=== PATIENT | male | born 1995 | race African-American/Black ===

== ENCOUNTER 2023-11-24 08:37 | Emergency (ER) | payer OTHER ==
[2023-11-24] MEDS ORDERED: LIDOCAINE 1% 20 ML MDV ONE (08:45)
[2023-11-24] MEDS ORDERED: BUPIVACAINE 0.5% PF 10 ML VIAL ONE (08:46)
--- NOTE | 2023-11-24 09:40 | RAD REPORT ---
EXAM DESCRIPTION: RAD - Finger-Thumb Right - 11/24/2023 9:20 am CLINICAL HISTORY: PAIN COMPARISON: No comparisons FINDINGS/IMPRESSION: Transversely oriented fracture at the third distal phalanx at the base of the t uft with approximately 4 millimeters of distraction of the fracture fragments. Bandage material is pr esent. There may be some debris at the wound. This appears to be an open fracture.
--- NOTE | 2023-11-24 10:00 | ER ---
Nurse's Notes [facility] Name: Burak Link Age: 28 yrs Sex: Male : 1995 Arrival Date: 11/24/2023 Time: 08:37 Bed 20 Private MD: Diagnosis: partial amputation / open fracture of distal phalanx of third finger, right hand Presentation: 11/23 08:39 Chief complaint: Inmate from [facility], states that the middle finger of the R hand was ph slammed in cell door this morning, obvious deformity noted. Coronavirus screen: Vaccine status: Patient reports receiving the 2nd dose of the covid vaccine. Ebola Screen: No symptoms or risks identified at this time. Initial Sepsis Screen: Does the patient meet any 2 criteria? No. Patient's initial sepsis screen is negative. Does the patient have a suspected source of infection? No. Patient's initial sepsis screen is negative. Risk Assessment: Do you want to hurt yourself or someone else? Patient reports no desire to harm self or others. Onset of symptoms was November 24, 2023. 08:39 Method Of Arrival: Law Enforcement: [place] [employer] 08:39 Acuity: JANNETTE 4 ph Triage Assessment: 08:50 General: Appears in no apparent distress. Behavior is calm, cooperative. Pain: ph Complains of pain in dorsal aspect of distal phalanx of right middle finger and right middle fingernail. Neuro: Level of Consciousness is awake, alert, obeys commands, Oriented to person, place, time, situation. Musculoskeletal: Range of motion: intact in all extremities. Injury Description: Avulsion sustained to dorsal aspect of distal phalanx of right middle finger is complete. Historical: - Allergies: 08:49 No Known Allergies; ph - PMHx: 08:49 HIV positive; ph - Immunization history:: Adult Immunizations unknown. - Social history:: Smoking status: unknown. Screenin:50 [facility] ED Fall Risk Assessment (Adult) History of falling in the last 3 months, ph including since admission No falls in past 3 months (0 pts) Confusion or Disorientation No (0 pts) Intoxicated or Sedated No (0 pts) Impaired Gait No (0 pts) Mobility Assist Device Used No (0 pt) Altered Elimination No (0 pt) Score/Fall Risk Level 0 - 2 = Low Risk Oriented to surroundings, Maintained a safe environment, Hourly rounding (assess needs \T\ fall precautionary measures) done, Used ambulatory aids as needed (educated on \T\ assisted with). Abuse screen: Denies threats or abuse. Denies injuries from another. Nutritional screening: No deficits noted. Tuberculosis screening: No symptoms or risk factors identified. Assessment: 08:51 General: SEE TRIAGE ASSESSMENT. ph Vital Signs: 08:39 BP 136 / 86; Pulse 81; Resp 18; Temp 98.7; Weight 83.91 kg; Height 5 ft. 10 in. ; ph 10:00 BP 133 / 81; Pulse 80; Resp 18; Pulse Ox 100% ; cp4 10:23 Pulse Ox 98% on R/A; sb4 11:00 BP 129 / 80; Pulse 71; Resp 18; Pulse Ox 100% ; cp4 12:00 BP 128 / 78; Pulse 70; Resp 18; Pulse Ox 100% ; cp4 13:00 BP 123 / 85; Pulse 74; Resp 18; Pulse Ox 100% ; cp4 14:00 BP 123 / 85; Pulse 70; Resp 18; Pulse Ox 100% ; cp4 08:39 Body Mass Index 26.54 (83.91 kg, 177.8 cm) ph ED Course: 08:39 Patient arrived in ED. ph 08:39 tSephany Sherwood PA-C is PHCP. sb4 08:39 Boni Ware MD is Attending Physician. sb4 08:49 Triage completed. ph 08:50 Arm band placed on Patient placed in an exam room, on a stretcher. ph 08:51 Patient has correct armband on for positive identification. Bed in low position. Call ph light in reach. Side rails up X 1. Pulse ox on. NIBP on. 08:55 Angela Correa, ADRIAN is Primary Nurse. ph 09:21 Finger-Thumb Right In Process Unspecified. EDMS 10:43 spoke with [facility] transfer center . bc6 12:34 [facility] will be here for pt at 2:30pm... bc6 14:47 Provided Education on: finger fracture. cp4 14:47 No provider procedures requiring assistance completed. Patient did not have IV access cp4 during this emergency room visit. Administered Medications: 10:01 Drug: Bupivacaine Infiltration (0.5 %) 10 ml 10 ml Infiltration once Volume: 10 ml; ph Route: Infiltration; 11:06 Follow up: Response: No adverse reaction cp4 10:01 Drug: Lidocaine Infiltration (1 %) 5 ml 5 ml Infiltration once; to bedside Volume: 5 ph ml; Route: Infiltration; 11:06 Follow up: Response: No adverse reaction cp4 10:41 Drug: CeFAZolin IM 1 grams IM once Route: IM; Site: left deltoid; ph 11:06 Follow up: Response: No adverse reaction cp4 Medication: 08:51 VIS not applicable for this client. ph Outcome: 10:00 ER care complete, transfer ordered by . sb4 14:47 Transferred by ground EMS to [facility], Transfer form cp4 completed. X-rays sent w/ patient. 14:47 Condition: stable 14:47 Instructed on the need for transfer, Demonstrated understanding of instructions, follow-up care, 14:48 Patient left the ED. cp4 Signatures: Dispatcher [employer] Angela Lott RN RN ph Brown, Sophia, PA-C PA-C sb4 Teresa Shetty6 Svetlana Garza cp4
--- NOTE | 2023-11-24 10:00 | EDPHYS ---
Physician Documentation [facility] Name: Burak Link Age: 28 yrs Sex: Male : 1995 Arrival Date: 11/24/2023 Time: 08:37 Bed 20 Private MD: ED Physician Boni Ware HPI: 11/23 08:46 This 28 yrs old Male presents to ER via Unassigned with complaints of Finger Injury. sb4 08:50 patient states that his right middle finger got caught in a door a few hours ago, sb4 sustaining a significant laceration. tetanus up to date. patient is HIV positive. no other complaints at this time. Historical: - Allergies: 08:49 No Known Allergies; ph - PMHx: 08:49 HIV positive; ph - Immunization history:: Adult Immunizations unknown. - Social history:: Smoking status: unknown. ROS: 08:50 Constitutional: Negative for fever, chills, and weight loss, sb4 08:50 Skin: Positive for laceration(s), of the dorsal aspect of distal phalanx of right middle finger and palmar aspect of distal phalanx of right middle finger, 08:50 All other systems are negative, Exam: 10:00 Constitutional: This is a well developed, well nourished patient who is awake, alert, sb4 and in no acute distress. Head/Face: Normocephalic, atraumatic. Eyes: Extra-ocular motions intact. Periorbital areas with no swelling, redness, or edema. ENT: Mucous membranes moist. 10:00 Skin: injury, laceration(s), the wound is approximately 4 cm(s), with a depth of 1 cm(s), of the palmar aspect of distal phalanx of right middle finger, that can be described as contaminated, no foreign body, irregular, with moderate bleeding, Vital Signs: 08:39 BP 136 / 86; Pulse 81; Resp 18; Temp 98.7; Weight 83.91 kg; Height 5 ft. 10 in. ; ph 10:00 BP 133 / 81; Pulse 80; Resp 18; Pulse Ox 100% ; cp4 10:23 Pulse Ox 98% on R/A; sb4 11:00 BP 129 / 80; Pulse 71; Resp 18; Pulse Ox 100% ; cp4 12:00 BP 128 / 78; Pulse 70; Resp 18; Pulse Ox 100% ; cp4 13:00 BP 123 / 85; Pulse 74; Resp 18; Pulse Ox 100% ; cp4 14:00 BP 123 / 85; Pulse 70; Resp 18; Pulse Ox 100% ; cp4 08:39 Body Mass Index 26.54 (83.91 kg, 177.8 cm) ph Procedures: 10:00 Nerve block: (digital) of dorsal aspect of proximal phalanx of right middle finger sb4 Medication: Lidocaine 1% without epinephrine Marcaine 0.5%, Amount: 5 mls were injected, Effect: the patient's symptoms are improved, moderately, Set up for procedure. Performed by Stephany Sherwood PA-C Patient tolerated well. MDM: 08:39 Patient medically screened. sb4 10:02 Data reviewed: vital signs, nurses notes, radiologic studies, I have discussed the sb4 patient's presentation/case with the attending Emergency Department Physician;. 11/23 09:21 Order name: Finger-Thumb Right; Complete Time: 09:42 EDMS 11/23 11:11 Order name: NPO; Complete Time: 11:20 sb4 Administered Medications: 10:01 Drug: Bupivacaine Infiltration (0.5 %) 10 ml 10 ml Infiltration once Volume: 10 ml; ph Route: Infiltration; 11:06 Follow up: Response: No adverse reaction cp4 10:01 Drug: Lidocaine Infiltration (1 %) 5 ml 5 ml Infiltration once; to bedside Volume: 5 ph ml; Route: Infiltration; 11:06 Follow up: Response: No adverse reaction cp4 10:41 Drug: CeFAZolin IM 1 grams IM once Route: IM; Site: left deltoid; ph 11:06 Follow up: Response: No adverse reaction cp4 Disposition Summary: 11/24/23 10:00 Transfer Ordered Notes: [facility] Reason: Higher level of care sb4 Condition: Fair sb4 Problem: new sb4 Symptoms: are unchanged sb4 Accepting Physician: Dr. Gibbs(11/24/23 14:48) cp4 Diagnosis - Open fracture of distal phalanx of third finger, right hand sb4 - partial amputation / open fracture of distal phalanx of third finger, right hand sb4 Forms: - Medication Reconciliation Form sb4 - SBAR form sb4 Addendum: 11/25/2023 16:57 I agree with the assessment and plan of care. e c2 Signatures: Dispatcher [employer] Angela Lott, ADRIAN RN ema Sherwood, Stephany, PA-C PA-C sb4 Boni Ware MD MD ec2 Svetlana Garza cp4 Corrections: (The following items were deleted from the chart) 11/23 09:21 08:45 Hand Right 3 View+RAD.RAD.BRZ ordered. MARY HERNANDEZ 11:11 10:00 hand sb4 sb4 11:17 11:11 Dr. Sai zarate4 sb4 11:17 11:17 Dr. Sai zarate4 sb4 14:48 11:17 Dr. Sai zarate4 cp4
[2023-11-24] MEDS ORDERED: NA CHLORIDE 0.9% 0 ML ONE (10:31)
[2023-11-24] MEDS ORDERED: CEFAZOLIN SODIUM 1 GM/VIAL ONE ×2 (10:31→10:37)
[2023-11-24] MEDS ORDERED: WATER FOR INJ,STERILE 10 ML ONE (10:37)
[2023-11-24 21:35] VITALS: BP 141/81; TEMP 97.7; O2SAT 98
== END 2023-11-24 14:48 | disposition short-term general hospital (02) ==
LOC: ER 08:37
DX: S62.632B Displaced fracture of distal phalanx of right middle finger, initial encounter for open fracture (principal); Z21 Asymptomatic human immunodeficiency virus [HIV] infection status
CPT/HCPCS: 73140; 64450; 96372; 99285; J2001; J0690

== ENCOUNTER 2023-12-26 11:58 | Emergency (ER) | payer OTHER ==
[2023-12-26] MEDS ORDERED: NA CHLORIDE 0.9% 100 ML ONE (12:58)
[2023-12-26] MEDS ORDERED: NA CHLORIDE 0.9% 250 ML ONE (12:58)
[2023-12-26] MEDS ORDERED: VANCOMYCIN 1 GM/VIAL ONE (12:58)
[2023-12-26] MEDS ORDERED: PIPERACIL/TAZO 3.375 GM VIAL IV ONE (12:58)
[2023-12-26 13:20] LABS: Absolute Lymphocytes (CBC) 1.9 K/uL (0.7-4.9); Absolute Monocytes 0.7 K/uL (0.1-1.3); Absolute Neutrophil 3.9 K/uL (1.8-8.0); Basophils % 0.4 % (0-1.3); Eosinophils % 0.1 % (0-4.4); Hematocrit 45.9 % (39.6-49.0); Hemoglobin 15.5 g/dL (13.6-17.9); Lymphocytes % 28.8 % (15.3-44.8); MCH 32.2 pg (27.0-35.0); MCHC 33.8 g/dL (32.0-36.0); MCV 95.2 fL (80-100); MPV 7.7 fL (7.6-11.3); Monocytes % 11.1 % (3.3-12.3); Neutrophils % 59.6 % (41.7-73.7); Platelets 351 thou/uL (152-406); RBC Red Blood Cell Count 4.83 M/uL (4.33-5.43); Red Cell Distribution Width 12.9 % (12.1-15.2)
--- NOTE | 2023-12-26 13:26 | RAD REPORT ---
EXAM DESCRIPTION: RAD - Hand Right 2 View - 12/26/2023 1:17 pm CLINICAL HISTORY: PAIN COMPARISON: Finger-Thumb Right dated 11/24/2023 FINDINGS/IMPRESSION: Previously identified fracture at the third distal phalangeal tuft is again silvana ntified. There is loss of the cortex along the tuft. The resoprtion could be secondary to osteomyelit is in the appropriate clinical setting. Correlate clinically. No other fracture identified.
[2023-12-26 13:27] LABS: Albumin 3.9 g/dL (3.4-5.0); Albumin/Globulin Ratio 0.8 (1.1-1.8); Anion Gap 6.7 mEq/L (5.0-15.0); Bilirubin Total 0.6 mg/dL (0.2-1.0); Globulin 4.8 g/dL (2.3-3.5); Potassium 3.7 mEq/L (3.5-5.1); Protein, Total 8.7 g/dL (6.4-8.2)
--- NOTE | 2023-12-26 14:24 | EDPHYS ---
Physician Documentation [facility] Name: Burak Link Age: 28 yrs Sex: Male : 1995 Arrival Date: 12/26/2023 Time: 11:58 Bed 13 Private MD: ED Physician Davian Canales HPI: 12/25 12:29 This 28 yrs old Black Male presents to ER via Law Enforcement with complaints of Finger sp3 Injury - 1 month ago. 12:29 28-year-old male who is HIV positive presents from [facility] with right middle finger sp3 distal pain. Patient had a crush injury approximate 1 month ago and was on antibiotics as well as had a what appears to be fingerpad drainage based on current exam. Unknown prior treatment at the facility. Patient presents with continued pain, swelling and now dark skin with concern of necrosis. No further injury reported. ROS is otherwise negative.. Historical: - Allergies: 12:02 No Known Allergies; aa5 - PMHx: 12:02 HIV positive; aa5 - Immunization history:: Adult Immunizations unknown. - Infectious Disease History:: Denies. - Social history:: Smoking status: Patient reports the use of cigarette tobacco products. ROS: 12:30 Constitutional: Negative for fever, chills, and weight loss, Eyes: Negative for injury, sp3 pain, redness, and discharge, ENT: Negative for injury, pain, and discharge, Neck: Negative for injury, pain, and swelling, Cardiovascular: Negative for chest pain, palpitations, and edema, Respiratory: Negative for shortness of breath, cough, wheezing, and pleuritic chest pain, Abdomen/GI: Negative for abdominal pain, nausea, vomiting, diarrhea, and constipation, Back: Negative for injury and pain, Neuro: Negative for headache, weakness, numbness, tingling, and seizure, Psych: Negative for depression, anxiety, suicide ideation, homicidal ideation, and hallucinations, Allergy/Immunology: Negative for hives, rash, and allergies, Endocrine: Negative for neck swelling, polydipsia, polyuria, polyphagia, and marked weight changes, Hematologic/Lymphatic: Negative for swollen nodes, abnormal bleeding, and unusual bruising, 12:30 All other systems are negative, Exam: 12:31 Constitutional: This is a well developed, well nourished patient who is awake, alert, sp3 and in no acute distress. Head/Face: Normocephalic, atraumatic. Neck: Trachea midline, no thyromegaly or masses palpated, and no cervical lymphadenopathy. Supple, full range of motion without nuchal rigidity, or vertebral point tenderness. No Meningismus. Chest/axilla: Normal chest wall appearance and motion. Nontender with no deformity. No lesions are appreciated. Cardiovascular: Regular rate and rhythm with a normal S1 and S2. No gallops, murmurs, or rubs. Normal PMI, no JVD. No pulse deficits. Respiratory: Lungs have equal breath sounds bilaterally, clear to auscultation and percussion. No rales, rhonchi or wheezes noted. No increased work of breathing, no retractions or nasal flaring. Abdomen/GI: Soft, non-tender, with normal bowel sounds. No distension or tympany. No guarding or rebound. No evidence of tenderness throughout. Back: No spinal tenderness. No costovertebral tenderness. Full range of motion. Neuro: Awake and alert, GCS 15, oriented to person, place, time, and situation. Cranial nerves II-XII grossly intact. Motor strength 5/5 in all extremities. Sensory grossly intact. Cerebellar exam normal. Normal gait. Psych: Awake, alert, with orientation to person, place and time. Behavior, mood, and affect are within normal limits. 12:31 Musculoskeletal/extremity: Right middle distal finger appears swollen, edematous with erythema as well as subungual hematoma and concern for infection.. Vital Signs: 11:59 BP 132 / 78; Pulse 64; Resp 19 S; Temp 98(TE); Pulse Ox 100% on R/A; Weight 78.93 kg aa5 (R); Height 5 ft. 9 in. (R); 13:03 BP 120 / 70; Pulse 66; Resp 16; Pulse Ox 99% on R/A; tl4 15:47 BP 123 / 80; Pulse 62; Resp 16; Temp 97.9(O); Pulse Ox 99% on R/A; Pain 2/10; tl4 11:59 Body Mass Index 25.70 (78.93 kg, 175.26 cm) aa5 15:47 Pain Scale: Adult tl4 MDM: 12:16 Patient medically screened. sp3 12:31 Data reviewed: vital signs, nurses notes, lab test result(s), radiologic studies. ED sp3 course: 28-year-old male with continued infection of the right distal finger from crush injury. Patient will likely need to be admitted to the hospital with IV antibiotics and hand surgery consultation for possible OR drainage.. 14:21 ED course: X-ray demonstrates osteomyelitis of the distal middle finger. Old fractures sp3 there as well. Vancomycin and Zosyn have been given. Laboratory values are within normal limits. We will transfer to [facility] for IV antibiotics and further surgical consultation.. 14:32 ED course: Discussed with Dr. Rodriguez at [facility] who is excepted this patient.. sp3 12/25 13:06 Order name: Comprehensive Metabolic Panel EDMS 12/25 13:06 Order name: Lactate w/ 2H reflex if indic. EDMS 12/25 13:06 Order name: CBC with Automated Diff EDMS 12/25 13:06 Order name: Blood Culture EDMS 12/25 13:06 Order name: Blood Culture EDMS 12/25 13:25 Order name: CBC with Automated Diff; Complete Time: 14:08 EDMS 12/25 13:27 Order name: Comprehensive Metabolic Panel; Complete Time: 14:08 EDMS 12/25 13:32 Order name: Lactate w/ 2H reflex if indic.; Complete Time: 14:08 EDMS 12/25 13:08 Order name: Hand Right 2 View EDMS 12/25 13:26 Order name: RAD; Complete Time: 14:08 EDMS / 12:19 Order name: IV Saline Lock - Large Bore; Complete Time: 12:53 sp3 12/25 12:19 Order name: Labs collected and sent; Complete Time: 12:53 sp3 12/25 12:19 Order name: Vital Signs; Complete Time: 12:36 sp3 Administered Medications: 13:28 Drug: Piperacillin-Tazobactam IVPB 3.375 grams IVPB once over 60 mins; (mix in NS 100 tl4 mL) {Note: via IV pump at 100 mL/hr.} Route: IVPB; Infused Over: 60 mins; Site: right antecubital; Delivery: Primary tubing; 15:46 Follow up: Response: No adverse reaction; IV Status: Completed infusion; IV Intake: tl4 100ml 14:48 Drug: vancoMYCIN IVPB 1 grams IVPB once over 2 hrs Route: IVPB; Rate: 125 ml/hr; tl4 Infused Over: 2 hrs; Site: right antecubital; Delivery: Primary tubing; 15:47 Follow up: Response: No adverse reaction; IV Status: Completed infusion; IV Intake: tl4 250ml Disposition Summary: 12/26/23 14:23 Transfer Ordered Notes: Transfer Location: [facility] sp3 Reason: Higher level of care sp3 Condition: Stable sp3 Problem: an acute exacerbation sp3 Symptoms: have worsened sp3 Accepting Physician: [facility] physician(12/26/23 15:49) tl4 Diagnosis - Osteomyelitis of the right middle phalanx sp3 Forms: - Medication Reconciliation Form sp3 - SBAR form sp3 Signatures: Dispatcher [employer] EDTaryn Lee RN RN aa5 Davian Canales MD MD sp3 Fernando Gaines RN RN tl4 Corrections: (The following items were deleted from the chart) 12:20 12:20 BLOOD CULTURE*+BA.LAB.BRZ ordered. EDMS EDMS 12:20 12:20 CBC+H.LAB.BRZ ordered. EDMS EDMS 12:20 12:20 COMPREHENSIVE METABOLIC PANEL+C.LAB.BRZ ordered. EDMS EDMS 12:20 12:20 LACTATE+C.LAB.BRZ ordered. EDMS EDMS 15:49 14:23 [facility] physician sp3 tl4
--- NOTE | 2023-12-26 14:24 | ER ---
Nurse's Notes [facility] Name: Burak Link Age: 28 yrs Sex: Male : 1995 Arrival Date: 12/26/2023 Time: 11:58 Bed 13 Private MD: Diagnosis: Osteomyelitis of the right middle phalanx Presentation: 12/25 11:59 Chief complaint: Patient states: "I jammed my finger on a door about a month ago but aa5 it's just getting worse". pt c/o pain and swelling to right middle finger. 11:59 Coronavirus screen: At this time, the client does not indicate any symptoms associated aa5 with coronavirus-19. Ebola Screen: Patient denies travel to an Ebola-affected area in the 21 days before illness onset. Initial Sepsis Screen: Does the patient meet any 2 criteria? No. Patient's initial sepsis screen is negative. Does the patient have a suspected source of infection? No. Patient's initial sepsis screen is negative. Risk Assessment: Do you want to hurt yourself or someone else? Patient reports no desire to harm self or others. Onset of symptoms was 2023. 11:59 Acuity: JANNETTE 4 aa5 11:59 Method Of Arrival: Law Enforcement: [place] [employer] aa5 Triage Assessment: 13:06 General: Appears in no apparent distress. Injury Description: Crush injury sustained to tl4 right hand. Historical: - Allergies: 12:02 No Known Allergies; aa5 - PMHx: 12:02 HIV positive; aa5 - Immunization history:: Adult Immunizations unknown. - Infectious Disease History:: Denies. - Social history:: Smoking status: Patient reports the use of cigarette tobacco products. Screenin:03 [facility] ED Fall Risk Assessment (Adult) History of falling in the last 3 months, tl4 including since admission No falls in past 3 months (0 pts) Confusion or Disorientation No (0 pts) Intoxicated or Sedated No (0 pts) Impaired Gait No (0 pts) Mobility Assist Device Used No (0 pt) Altered Elimination No (0 pt) Score/Fall Risk Level 0 - 2 = Low Risk Oriented to surroundings, Maintained a safe environment, Educated pt \\T\\ family on fall prevention, incl call for assistance when getting out of bed, Assessed \\T\\ reinforced patient's understanding of fall precautions. Abuse screen: Denies threats or abuse. Denies injuries from another. Nutritional screening: No deficits noted. Tuberculosis screening: No symptoms or risk factors identified. Assessment: 13:02 General: Appears in no apparent distress. Behavior is calm, cooperative. Pain: tl4 Complains of pain in right hand. Neuro: Level of Consciousness is awake, alert, obeys commands, Oriented to person, place, time, situation, Moves all extremities. Full function Gait is steady, Speech is normal. Cardiovascular: Capillary refill < 3 seconds Patient's skin is warm and dry. Respiratory: Airway is patent Respiratory effort is even, unlabored, Respiratory pattern is regular, symmetrical, Breath sounds are clear bilaterally. GI: No signs and/or symptoms were reported involving the gastrointestinal system. : No signs and/or symptoms were reported regarding the genitourinary system. EENT: No signs and/or symptoms were reported regarding the EENT system. Derm: No signs and/or symptoms reported regarding the dermatologic system. Musculoskeletal: Swelling present in right hand. Vital Signs: 11:59 BP 132 / 78; Pulse 64; Resp 19 S; Temp 98(TE); Pulse Ox 100% on R/A; Weight 78.93 kg aa5 (R); Height 5 ft. 9 in. (R); 13:03 BP 120 / 70; Pulse 66; Resp 16; Pulse Ox 99% on R/A; tl4 15:47 BP 123 / 80; Pulse 62; Resp 16; Temp 97.9(O); Pulse Ox 99% on R/A; Pain 2/10; tl4 11:59 Body Mass Index 25.70 (78.93 kg, 175.26 cm) aa5 15:47 Pain Scale: Adult tl4 ED Course: 11:58 Arm band placed on Patient placed in an exam room, on a stretcher. aa5 11:59 Patient arrived in ED. aa5 12:03 Davian Canales MD is Attending Physician. sp3 12:03 Triage completed. aa5 12:35 Fernando Gaines, ADRIAN is Primary Nurse. tl4 12:50 Initial lab(s) drawn, by me, sent to lab. First set of blood cultures drawn by me. tl4 13:04 Patient has correct armband on for positive identification. Bed in low position. Call tl4 light in reach. Side rails up X2. Snf CO x 3 at bedside, pt in nursing home clothing secured with nursing home restraints. Provided Education on: ED process. Client placed on continuous cardiac and pulse oximetry monitoring. NIBP monitoring applied. Noise minimized. Lights dimmed. Moved to private room. Pillow given. 13:05 No provider procedures requiring assistance completed. Inserted saline lock: 22 gauge tl4 in right antecubital area, using aseptic technique. Blood collected. 13:19 Hand Right 2 View In Process Unspecified. EDMS 14:23 called [facility] care to start transfer to [facility] talked to Thien. rasmussen 15:[address] Heraclio Frausto accepted pt to [facility] 1430 admin approval Donald Ruggiero, TC 612 bed #1 will sp be transferred by [facility] by nursing home guards. [phone] [facility] care phone number. 15:48 Patient transferred, IV remains in place. tl4 Administered Medications: 13:28 Drug: Piperacillin-Tazobactam IVPB 3.375 grams IVPB once over 60 mins; (mix in NS 100 tl4 mL) {Note: via IV pump at 100 mL/hr.} Route: IVPB; Infused Over: 60 mins; Site: right antecubital; Delivery: Primary tubing; 15:46 Follow up: Response: No adverse reaction; IV Status: Completed infusion; IV Intake: tl4 100ml 14:48 Drug: vancoMYCIN IVPB 1 grams IVPB once over 2 hrs Route: IVPB; Rate: 125 ml/hr; tl4 Infused Over: 2 hrs; Site: right antecubital; Delivery: Primary tubing; 15:47 Follow up: Response: No adverse reaction; IV Status: Completed infusion; IV Intake: tl4 250ml Medication: 15:49 VIS not applicable for this client. tl4 Intake: 15:46 IV: 100ml; Total: 100ml. tl4 15:47 IV: 250ml; Total: 350ml. tl4 Outcome: 14:23 ER care complete, transfer ordered by MD. [email or web address] 15:48 Transferred by private ambulance to [facility], Transfer form tl4 completed. X-rays sent w/ patient. 15:48 Condition: stable 15:48 Instructed on the need for transfer, 15:49 Patient left the ED. tl4 Signatures: Dispatcher [employer] EDMS IrajCarine montes Audri, RN RN aa5 Izabela Stone RN RN hb Davian Canales MD MD sp3 Fernando Gaines RN RN tl4 Corrections: (The following items were deleted from the chart) 12:04 11:59 BP 132 / 78; Pulse 64bpm; Resp 19bpm; Spontaneous; Pulse Ox 100% RA; Temp 98F hb Temporal; aa5 12:04 11:59 BP 132 / 78; Pulse 64bpm; Resp 19bpm; Spontaneous; Pulse Ox 100% RA; Temp 98F hb Temporal; 18.1 kg Measured; hb
[2023-12-27 14:41] VITALS: BP 123/80; TEMP 97.9; O2SAT 99
== END 2023-12-26 15:49 | disposition short-term general hospital (02) ==
LOC: ER 11:58
DX: M86.9 Osteomyelitis, unspecified (principal); Z21 Asymptomatic human immunodeficiency virus [HIV] infection status; Z72.0 Tobacco use
CPT/HCPCS: 96365; 87040 ×2; 85025; 36415; 83605; 80053; 73120; 99285; J2543; J7050